=== PATIENT | male | born 1935 | race Caucasian/White ===

== ENCOUNTER 2017-06-29 08:30 | Inpatient (IN) | payer OTHER ==
[~2017-06-29] VITALS: Ht 170.2 cm; Wt 68.9 kg
[2017-06-29 10:15] LABS: ABSOLUTE BASOPHIL COUNT 0 /CUMM (0.0-0.2); ABSOLUTE EOSINOPHIL COUNT 0 /CUMM (0.0-0.7); ABSOLUTE GRANULOCYTE CT 6.2 /CUMM (1.4-6.5); ABSOLUTE LYMPH COUNT 1.2 /CUMM (1.2-3.4); BASOPHIL % 0.4 % (0.0-2.0); EOSINOPHIL % 0.4 % (0-5); GRANULOCYTE % 72.6 % (42.2-75.2); HEMATOCRIT 41.4 % (42-52); MEAN CORPUSCULAR HGB 27.6 PG (27.0-31.0); MEAN CORPUSCULAR HGB CONC 33.2 G/DL (33.0-37.0); MEAN CORPUSCULAR VOLUME 83.2 FL (80.0-94.0); MEAN PLATELET VOLUME 7.8 FL (7.4-10.4); PLATELET COUNT 253 /CUMM (130-400); RBC DISTRIBUTION WIDTH 13.2 % (11.5-14.5); RED BLOOD CELL CT 4.97 /CUMM (4.70-6.10); WHITE BLOOD CELL COUNT 8.5 /CUMM (4.8-10.8)
--- NOTE | 2017-06-29 11:20 | ED SYNCOPE COMPLAINT ---
History of Present Illness General Chief Complaint: General Adult Stated Complaint: 3 EPISODES OF SYNCOPE, UPPER RESP SYMPTOMS Source: patient Exam Limitations: no limitations Vital Signs & Intake/Output Vital Signs & Intake/Output Vital Signs Date Time Temp Pulse Resp B/P B/P Pulse O2 O2 Flow FiO2 Mean Ox Delivery Rate 06/29 1251 96.8 56 18 146/67 100 Room Air 06/29 1124 96.0 56 18 162/68 100 Room Air 06/29 0851 96.9 62 16 148/65 95 Room Air Allergies Coded Allergies: codeine (Severe, HALLUCINATIONS 06/29/17) Triage Note: PT TO ED FOR THREE NEAR SYNCOPAL EPISODES OVER THE WEEKEND, GENERALIZED WEAKNESS AND POOR APPETITE SINCE THURSDAY. PT DENIES ANY SOB, RUBALCAVA, CP, PALPITATIONS. Triage Nurses Notes Reviewed? yes Timing: recent history Precipitating Factors: none HPI: 81-year-old male comes into the emergency room for multiple complaints. He reports that he has not felt well for the past 4-5 days with associated cough and weakness. He reports that he's had 3 separate episodes of feeling profoundly weak dizzy lightheaded and his legs have just given out on him. He admits that he has not been drinking water at home. He denies any associated chest pain or shortness of breath or palpitations. He denies any complete loss of consciousness. He comes in for further evaluation. (Titus Story) Past History Travel History Traveled to [place] past 21 day No Medical History Any Pertinent Medical History? see below for history Neurological: NONE EENT: NONE Cardiovascular: hypertension Respiratory: NONE Gastrointestinal: NONE Hepatic: NONE Renal: NONE Musculoskeletal: NONE Psychiatric: anxiety Endocrine: diabetes Blood Disorders: NONE Cancer(s): NONE Surgical History Surgical History: non-contributory Psychosocial History What is your primary language Mexican Tobacco Use: Never used ETOH Use: denies use Illicit Drug Use: denies illicit drug use Family History Hx Contributory? No (Titus Story) Review of Systems Review of Systems Constitutional: Reports: see HPI. EENTM: Reports: no symptoms. Respiratory: Reports: see HPI. Cardiovascular: Reports: see HPI. GI: Reports: no symptoms. Genitourinary: Reports: no symptoms. Musculoskeletal: Reports: no symptoms. Skin: Reports: no symptoms. Neurological/Psychological: Reports: no symptoms. All Other Systems: Reviewed and Negative (Titus Story) Physical Exam Physical Exam General Appearance: well developed/nourished, no apparent distress, alert, awake Head: atraumatic, normal appearance Eyes: Bilateral: normal appearance, PERRL, EOMI. Ears, Nose, Throat: normal pharynx, normal ENT inspection, hearing grossly normal Neck: normal inspection Respiratory: normal breath sounds, no respiratory distress Cardiovascular: regular rate/rhythm Back: normal inspection Extremities: normal inspection Psychiatric: awake, alert, oriented x 3 Cranial Nerves: normal hearing, normal speech, PERRL Coordination/Gait: normal finger to nose, normal gait Motor/Sensory: no motor/sensory deficits Skin: intact, normal color Core Measures ACS in differential dx? Yes CVA/TIA Diagnosis: No Sepsis Present: No Sepsis Focused Exam Completed? No (Titus Story) Progress Differential Diagnosis: AMI, aortic dissection, orthostatic syncope, sick sinus syndrome, subarachnoid hem., TIA/CVA, ventricular tach/fib, DEHYDRATION, BRONCHITIS, INFLUENZA, Plan of Care: Orders Procedure Date/time Status Heart Healthy Diet 06/29 D Active Patient Data 06/29 1249 Active Misc Message 06/29 1242 Active ED Holding Orders 06/29 1242 Active Admit to inpatient 06/29 1242 Active Vital Signs 06/29 1242 Active Code Status 06/29 1242 Active MISTAKE 06/29 1051 Active RAPID VIRAL INFLUENZA A 06/29 0851 Complete URINALYSIS 06/29 0841 Complete TROPONIN LEVEL 06/29 0841 Complete COMPREHENSIVE METABOLIC PANEL 06/29 0841 Complete CBC WITHOUT DIFFERENTIAL 06/29 0841 Complete EKG 06/29 0833 Active Current Medications Sig/Dominic Start time Last Medication Dose Stop Time Status Admin Sodium Chloride 1,000 ML ONCE ONE 06/29 1130 AC 06/29 (Normal Saline 0.9%) 06/29 1809 1156 Laboratory Tests 06/29/17 1020: Urinalysis LIGHT H, Urine Color YEL, Urine Clarity HAZY H, Urine pH 6.0, Ur Specific [place] >= 1.030, Urine Protein TRACE H, Urine Ketones TRACE H, Urine Nitrite NEG, Urine Bilirubin NEG, Urine Urobilinogen 0.2, Ur Leukocyte Esterase NEG, Ur Microscopic SEDIMENT EXAMINED, Urine RBC 3-5, Urine WBC 5-10 H, Ur Epithelial Cells RARE, Urine Bacteria MOD H, Hyaline Casts 1-3 H, Granular Casts 3-5 H, Urine Mucus FEW, Urine Hemoglobin SMALL H, Urine Glucose NEG 06/29/17 1004: Anion Gap 15, Estimated GFR 34 L, BUN/Creatinine Ratio 21.1, Glucose 98, Calcium 9.5, Total Bilirubin 0.4, AST 63 H, ALT 60, Alkaline Phosphatase 77, Troponin I < 0.01, Total Protein 7.0, Albumin 4.2, Globulin 2.8, Albumin/ Globulin Ratio 1.5, CBC w Diff NO MAN DIFF REQ, RBC 4.97, MCV 83.2, MCH 27.6, MCHC 33.2, RDW 13.2, MPV 7.8, Gran % 72.6, Lymphocytes % 14.4 L, Monocytes % 12.2 H, Eosinophils % 0.4, Basophils % 0.4, Absolute Granulocytes 6.2, Absolute Lymphocytes 1.2, Absolute Monocytes 1.0 H, Absolute Eosinophils 0, Absolute Basophils 0 Microbiology 06/29 0857 NASOPHARYN: Influenza Virus A & B Rapid Smear - COMP Diagnostic Imaging: Viewed by Me: Radiology Read. Discussed w/RAD: Radiology Read. Radiology Impression: PATIENT: SOREN MICHELLE PRESENT AGE: 81 PATIENT ACCOUNT NO: [id number] : 35 LOCATION: [facility] ORDERING PHYSICIAN: Titus CHAO SERVICE DATE: 06/29/17 EXAM TYPE: RAD - XRY-CHEST XRAY, TWO VIEWS EXAMINATION: XR CHEST CLINICAL INFORMATION: Cough. Shortness of breath. COMPARISON: Selected images of the CT abdomen and pelvis of 02/11/2017. TECHNIQUE: 2 views of the chest were obtained. FINDINGS: Moderate elevation of the right hemidiaphragm is a stable finding. The evaluation of the right hemidiaphragm results in hyperexpansion of the right lung. Minimal right basilar subsegmental atelectasis. Remainder of the lungs are clear. No pleural effusions or pneumothorax. Mild degenerative changes in the spine. The cardiomediastinal silhouette is normal. IMPRESSION: Stable moderate elevation of the right hemidiaphragm. No acute pulmonary process. DICTATED BY: Darwin THOMPSON,Anal DATE/TIME DICTATED:06/29/171212 PSYCHOLOGIST CLINICAL:DAVID DATE/TIME TRANSCRIBED:06/29/171212 CONFIDENTIAL, DO NOT COPY WITHOUT APPROPRIATE AUTHORIZATION. <Electronically signed in Other Vendor System> SIGNED BY: Honey Granados MD 06/29/171217 Initial ED EKG: normal sinus rhythm, rate (65), LBBB (Titus Story) Departure Departure Disposition: STILL A PATIENT Condition: Stable Clinical Impression Primary Impression: Acute kidney injury Secondary Impressions: Near syncope Referrals: Matthieu THOMPSON,Jarek Leon (PCP/Family) Departure Forms: Customer Survey General Discharge Information Admission Note Spoke With: Madan Singh MD Documentation of Exam: Documentation of any treatments & extenuating circumstances including Concerns Regarding Discharge (functional status, medication knowledge or non-compliance, living conditions, etc.) that warrant an admission rather than observation: Patient will require gentle IV hydration. Cardiac telemetry. Cardiac consultation. Repeat labs. Physical therapy consult. Medically not safe for discharge. New-onset acute kidney injury. Orthostatic. (Titus Story) PA/LINING PRESSER Co-Sign Statement Statement: ED Attending supervision documentation- [X] I saw and evaluated the patient. I have also reviewed all the pertinent lab results and diagnostic results. I agree with the findings and the plan of care as documented in the PA's/LINING PRESSER's documentation. Patient presents for evaluation of multiple syncopal or near syncopal episodes. Patient states that there is no prodromal symptoms typically are limited and feeling his legs go out from under him. He denies chest pain or palpitations or headache associated with the episodes. Physical examination reveals a nonfocal neurologic examination aND regular heart rate. [] I have reviewed the ED Record and agree with the PA's/LINING PRESSER's documentation. [] Additions or exceptions (if any) to the PAs/LINING PRESSER's note and plan are summarized below: [] (Maranda THOMPSON,Jason Riley) (Jason Low MD)
--- NOTE | 2017-06-29 12:18 | RADIOLOGY REPORT ---
EXAMINATION: XR CHEST CLINICAL INFORMATION: Cough. Shortness of breath. COMPARISON: Selected images of the CT abdomen and pelvis of 02/11/2017. TECHNIQUE: 2 views of the chest were obtained. FINDINGS: Moderate elevation of the right hemidiaphragm is a stable finding. The evaluation of the right hemidiaphragm results in hyperexpansion of the right lung. Minimal right basilar subsegmental atelectasis. Remainder of the lungs are clear. No pleural effusions or pneumothorax. Mild degenerative changes in the spine. The cardiomediastinal silhouette is normal. IMPRESSION: Stable moderate elevation of the right hemidiaphragm. No acute pulmonary process.
--- NOTE | 2017-06-29 13:54 | History & Physical ---
Nestor Humphrey 06/29/17 1337: General Information and HPI MD Statement: I have seen and personally examined SOREN MICHELLE and documented this H&P. The patient is a 81 year old M who presented with a patient stated chief complaint of falls 3.. Source of Information: patient, family Exam Limitations: clinical condition, dementia History of Present Illness: Mr. Michelle is a 81-year-old gentleman with past medical history significant for coronary artery disease status post stent placement 6 years ago, hypertension, hyperlipidemia, dementia presented to ED this morning after experiencing frequent falls in the last 1 week. Patient was in his usual state of health until a week ago, when he visited his nephew's . After that, patient started experiencing "chest cold symptoms ". He was coughing heavily, had sputum production, recorded a temperature of 101.8, but no chills. This was accompanied by poor appetite and decreased oral hydration. 3 days ago, patient had an incident where he was in the kitchen, felt weak in his legs and then fell down on his hips. There was no associated lightheadedness, dizziness, palpitations. Patient has full re collection of the incident, and did not lose consciousness. Patient sustained 2 more similar falls, one this morning that prompted the patient's family to bring him to the ED. No loss of bowel or bladder incontinence. All the falls were unwitnessed. No numbness, tingling in any of the extremities. Patient states that despite his low appetite, he has been taking his medications (all blood pressure medications) faithfully. Of note, patient has had recent weight loss, which has been evaluated on the outside by Dr. Herring. He also reports decreased appetite for several months. Patient is a nonsmoker and from the last records, his last colonoscopy was in 2007. Mr. Michelle does have freckling on his lower lips. Other systems reviewed and negative, exceptions above. Allergies/Medications Allergies: Coded Allergies: codeine (Severe, HALLUCINATIONS 06/29/17) Home Med list Alprazolam 0.25 MG TABLET 1 TAB PO DAILY NEEDED MENTAL HEALTH (Reported) Amlodipine Besylate 10 MG TABLET 0.5 TAB PO DAILY BLOOD PRESSURE (Reported) Aspirin (Ecotrin*) 81 MG TABLET. 1 TAB PO DAILY HEART (Reported) Metformin HCl (Glucophage) 850 MG TABLET 1 TAB PO DAILY DIABETES (Reported) Metoprolol Tartrate (Lopressor) 50 MG TABLET 1 TAB PO BID HEART (Reported) Rosuvastatin Calcium (Crestor) 20 MG TABLET 1 TAB PO DAILY HLD (Reported) Tamsulosin HCl (Flomax) 0.4 MG CAP.ER.24H 1 CAP PO DAILY BPH (Reported) Triamterene/Hydrochlorothiazid (Triamterene-Hctz 37.5-25 MG Cp) 37.5 MG-25 MG CAPSULE 1 CAP PO DAILY WATER PILL (Reported) Valsartan (Diovan) 160 MG TABLET 1 TAB PO DAILY HTN (Reported) Compliance With Home Meds: GOOD Past History Travel History Traveled to [place] past 21 day No Medical History Neurological: NONE EENT: NONE Cardiovascular: hypertension Respiratory: NONE Gastrointestinal: NONE Hepatic: NONE Renal: NONE Musculoskeletal: NONE Psychiatric: anxiety Endocrine: diabetes Blood Disorders: NONE Cancer(s): NONE Surgical History Surgical History: non-contributory Past Family/Social History Family History Relations & Conditions if any Relation not specified for: No pertinent family history Psychosocial History ETOH Use: denies use Illicit Drug Use: denies illicit drug use Review of Systems Review of Systems Constitutional: Reports: see HPI. Exam & Diagnostic Data Last 24 Hrs of Vital Signs/I&O Vital Signs Date Time Temp Pulse Resp B/P B/P Pulse O2 O2 Flow FiO2 Mean Ox Delivery Rate 06/29 1251 96.8 56 18 146/67 100 Room Air 06/29 1124 96.0 56 18 162/68 100 Room Air 06/29 0851 96.9 62 16 148/65 95 Room Air Intake & Output 06/29 1600 06/29 0800 06/29 0000 Intake Total 0 Output Total 0 Balance 0 Intake, Oral 0 Output, Urine 0 Patient 150 lb Weight Weight Reported by Patient Measurement Method Physical Exam General Appearance Alert, Cooperative, No Acute Distress Skin No Rashes, No Breakdown, No Significant Lesion Skin Temp/Moisture Exam: Warm/Dry HEENT Atraumatic, PERRLA, EOMI, Mucous Membr. moist/pink, FRECKLING OF THE LOWER LIPS Neck Supple, No JVD Lymphatic Axillary nl, Cervical nl Cardiovascular Regular Rate, Normal S1, Normal S2 Lungs Clear to Auscultation, Normal Air Movement Abdomen Soft, No Tenderness, HYPERACTIVE BOWEL SOUNDS. Neurological Normal Speech, Strength at 5/5 X4 Ext Extremities No Clubbing, No Cyanosis, No Edema Last 24 Hrs of Labs/Pankaj: Laboratory Tests 06/29/17 1020: Urinalysis LIGHT H, Urine Color YEL, Urine Clarity HAZY H, Urine pH 6.0, Ur Specific [place] >= 1.030, Urine Protein TRACE H, Urine Ketones TRACE H, Urine Nitrite NEG, Urine Bilirubin NEG, Urine Urobilinogen 0.2, Ur Leukocyte Esterase NEG, Ur Microscopic SEDIMENT EXAMINED, Urine RBC 3-5, Urine WBC 5-10 H, Ur Epithelial Cells RARE, Urine Bacteria MOD H, Hyaline Casts 1-3 H, Granular Casts 3-5 H, Urine Mucus FEW, Urine Hemoglobin SMALL H, Urine Glucose NEG 06/29/17 1004: Anion Gap 15, Estimated GFR 34 L, BUN/Creatinine Ratio 21.1, Glucose 98, Calcium 9.5, Total Bilirubin 0.4, AST 63 H, ALT 60, Alkaline Phosphatase 77, Troponin I < 0.01, Total Protein 7.0, Albumin 4.2, Globulin 2.8, Albumin/ Globulin Ratio 1.5, CBC w Diff NO MAN DIFF REQ, RBC 4.97, MCV 83.2, MCH 27.6, MCHC 33.2, RDW 13.2, MPV 7.8, Gran % 72.6, Lymphocytes % 14.4 L, Monocytes % 12.2 H, Eosinophils % 0.4, Basophils % 0.4, Absolute Granulocytes 6.2, Absolute Lymphocytes 1.2, Absolute Monocytes 1.0 H, Absolute Eosinophils 0, Absolute Basophils 0 Microbiology 06/29 1020 URINE ROUT: Urine Culture - RECD 06/29 0857 NASOPHARYN: Influenza Virus A & B Rapid Smear - COMP Diagnostic Data EKG Results Sinus rhythm. QRS greater than 120. Dominant S wave in V1. Broad R waves and absent Q waves in lead 1, aVL, V5 to V6. Left bundle-branch block. CXR Results IMPRESSION: Stable moderate elevation of the right hemidiaphragm. No acute pulmonary process. Assessment/Plan Assessment: 81-year-old gentleman with past medical history significant for coronary artery disease status post stent placement 6 years ago, comes in with frequent falls 3 over the last 1 week, in the setting of recent upper respiratory chest syndrome, with subsequent decreased appetite and oral hydration resulting in unwitnessed falls associated with no transient loss of consciousness and no prodromal symptoms, likely secondary to dehydration (especially in the setting of TRINITY), although etiologies related to arrhythmias, structural cardio pulmonary disease etc. need to be ruled out. -Monitor on telemetry. -Check orthostatics. Resume Tamsulosin in am. -Serial troponins and EKG. -Check echocardiogram. -Fluid hydration with normal saline 2 bags. Encourage by mouth intake. Check BEP in the morning. Monitor LFTs (?high dose statin use). Hold nephrotoxic agents. Check CK. -Check CK levels to monitor safe use of statins. This could be a contributing factor to his muscle weakness and fall. May check Vit D and TSH levels. -For recent upper respiratory symptoms, continue hydration, antitussives and Tessalon Perles. Albuterol inhaler when necessary. TRC. Full code. Heart healthy diet. Heparin for DVT prophylaxis. As Ranked By This Provider Problem List: 1. Near syncope 2. Acute kidney injury Core Measures/Misc (02/01) Acute Coronary Syndrome ACS Diagnosis: No Congestive Heart Failure Congestive Heart Failure Diagnosis No Cerebrovascular Accident CVA/TIA Diagnosis: No VTE (View Protocol) VTE Risk Factors Age>40 No Mechanical VTE Prophylaxis d/t N/A MechProphylax Ordered No VTE Pharm Prophylaxis d/t NA PharmProphylax ordered Sepsis (View protocol) Sepsis Present: No Marion Lora MD 06/29/17 1440: Attending MD Review Statement Attending Statement Attending MD Statement: examined this patient, discuss w/resident/PA/MEDIA/INSTRUCTIONAL DESIGNER, agreed w/resident/PA/MEDIA/INSTRUCTIONAL DESIGNER, reviewed EMR data (avail), discussed with nursing, reviewed images Attending Assessment/Plan: 81-year-old male fairly extensive past medical history including coronary artery disease, diabetes on metformin, BPH on tamsulosin, hypertension on multiple medications and dementia. He had an upper respiratory tract infections/ influenza-like illness after a sick contact at a and subsequently for the past few days has had very poor by mouth intake, resulting in falls and near syncopal events 3. In the ER he was found to be dehydrated with TRINITY with a BUN of 40 and a creatinine of 1.9 with no evidence of infection with a negative UA, negative chest x-ray and negative flu swab. At this point given these near syncopal events will bring him into telemetry and get an echocardiogram to rule out structural heart disease. Will obviously hold his diuretics and his arb and gently hydrate him. Continue his metoprolol, tamsulosin and Norvasc. Put him on DVT prophylaxis, get a PT eval. His crtts is Dr. Barrera in [place] and will call him for collateral information.
--- NOTE | 2017-06-29 14:40 | Admission Certification ---
Admission Certification Certification Statement - As attending physician, I certify that at the time of - admission, based on clinical presentation, severity of - symptoms, need for further diagnostic testing and - therapeutic interventions, and risk of adverse outcomes - without in-hospital treatment, in my clinical assessment, - this patient requires an acute hospital stay for a minimum - of two nights or longer. I have also considered psychsocial - factors such as support system, advanced age, financial - issues, cognitive issues, and failed out-patient treatments, - past re-admission history, safety of patient, and lack of - compliance as applicable. Specific rationale supporting this admission is: Near syncope, dehydration and TRINITY.
[2017-06-29 14:45] VITALS: BP 124/64
[2017-06-29] MEDS ORDERED: ALPRAZOLAM0.25 M1 PO (14:52)
[2017-06-29] MEDS ORDERED: GLUCOPHAGE850 M2 PO (14:52)
[2017-06-29] MEDS ORDERED: FLOMAX0.4 M1 PO (14:53)
[2017-06-29] MEDS ORDERED: CRESTOR20 M2 PO (14:53)
[2017-06-29] MEDS ORDERED: ASPIRIN EC81 M1 PO (14:53)
[2017-06-29] MEDS ORDERED: LOPRESSOR50 M1 PO (14:54)
[2017-06-29] MEDS ORDERED: AMLODIPINE BESY10 M1 PO (14:54)
[2017-06-29] MEDS ORDERED: DIOVAN160 MG PO (14:54)
[2017-06-29] MEDS ORDERED: TRIAMTERENE-HC1 EAC3 PO (14:55)
--- NOTE | 2017-06-29 20:19 | RADIOLOGY REPORT ---
EXAMINATIONS: PELVIS 1 VIEW AND BILATERAL HIPS 2 VIEWS EACH CLINICAL INFORMATION: Pain after fall. COMPARISON: None. TECHNIQUE: A supine view of the pelvis is provided. AP neutral and frog-leg lateral views of each hip are provided. FINDINGS: There are no fractures. Both femoral heads are seated within well-formed acetabula. No dysplastic changes are identified. There is mild bilateral acetabular osteophyte formation. There is mild degenerative change within the visualized lower lumbar spine. The visualized bowel gas pattern is unremarkable. IMPRESSION: No evidence for acute injury. Quite mild lateral acetabular osteophyte formation. Mild degenerative change within the lower lumbar spine.
[2017-06-29 20:51] VITALS: BP 132/60
[2017-06-30 05:46] VITALS: BP 108/47
[2017-06-30 08:29] LABS: ABSOLUTE BASOPHIL COUNT 0 /CUMM (0.0-0.2); ABSOLUTE EOSINOPHIL COUNT 0 /CUMM (0.0-0.7); ABSOLUTE MONOCYTE COUNT 0.8 /CUMM (0.10-0.60); RBC DISTRIBUTION WIDTH 12.9 % (11.5-14.5)
[2017-06-30 08:57] LABS: ABSOLUTE GRANULOCYTE CT 3.8 /CUMM (1.4-6.5); ABSOLUTE LYMPH COUNT 1.8 /CUMM (1.2-3.4); BASOPHIL % 0.5 % (0.0-2.0); EOSINOPHIL % 0.4 % (0-5); MEAN CORPUSCULAR HGB 27.8 PG (27.0-31.0); MEAN CORPUSCULAR HGB CONC 33.3 G/DL (33.0-37.0); MEAN CORPUSCULAR VOLUME 83.4 FL (80.0-94.0); MEAN PLATELET VOLUME 8.1 FL (7.4-10.4); PLATELET COUNT 225 /CUMM (130-400); RED BLOOD CELL CT 4.12 /CUMM (4.70-6.10); WHITE BLOOD CELL COUNT 6.4 /CUMM (4.8-10.8)
[2017-06-30 08:59] LABS: HEMATOCRIT 34.3 % (42-52)
--- NOTE | 2017-06-30 10:02 | PN- Housestaff ---
Josh THOMPSON,[facility] 06/30/17 1001: Subjective Follow-up For: Fall TRINITY Subjective: Patient states he does not have any appetite and has not been able to eat much but drinks enough fluids. Also feels congested but is not able to bring up any phlegm. Review of Systems Constitutional: Reports: no symptoms. EENTM: Reports: no symptoms. Cardiovascular: Reports: no symptoms. Respiratory: Reports: cough. Gastrointestinal: Reports: no symptoms. Genitourinary: Reports: no symptoms. Musculoskeletal: Reports: no symptoms. Skin: Reports: no symptoms. Neurological/Psychological: Reports: no symptoms. Hematologic/Endocrine: Reports: no symptoms. Immunologic/Allergic: Reports: no symptoms. Objective Last 24 Hrs of Vital Signs/I&O Vital Signs Date Time Temp Pulse Resp B/P B/P Pulse O2 O2 Flow FiO2 Mean Ox Delivery Rate 06/30 1440 98.5 52 20 112/52 98 Room Air 06/30 09 68 108/57 06/30 0927 68 108/57 06/30 0927 68 108/57 06/30 0546 99.3 56 20 108/47 97 06/29 2051 99.3 68 20 132/60 98 Room Air 06/29 2046 68 132/60 06/29 1826 Room Air Room Air Intake & Output 06/30 1600 06/30 0800 06/30 0000 Intake Total 1000 750 100 Output Total 900 825 Balance 100 -75 100 Intake, IV 600 600 Intake, Oral 400 150 100 Number 0 Bowel Movements Output, Urine 900 825 Physical Exam General Appearance: Alert, Oriented X3, Cooperative, No Acute Distress Skin: No Rashes, No Breakdown Cardiovascular: Regular Rate, Normal S1, Normal S2 Lungs: Clear to Auscultation, Normal Air Movement Abdomen: Normal Bowel Sounds, Soft, No Tenderness Extremities: No Clubbing, No Cyanosis, No Edema, Normal Pulses Current Medications: Current Medications Sig/Dominic Start time Last Medication Dose Route Stop Time Status Admin Acetaminophen 650 MG Q4P PRN 06/29 1630 AC PO Acetaminophen 1,000 MG Q6P PRN 06/29 1630 AC N/A 1 UNIT IV Albuterol Sulfate 2 PUF Q4 PRN 06/29 1530 AC INH Alprazolam 0.25 MG DAILY NEEDED 06/29 1500 AC PO 07/06 1459 Amlodipine Besylate 5 MG DAILY 06/30 1000 AC 06/30 PO 0927 Aspirin Buffered 81 MG DAILY 06/30 1000 AC 06/30 PO 0927 Atorvastatin Calcium 80 MG 1700 06/29 1700 AC 06/30 PO 1600 Benzonatate 100 MG TID 06/29 1600 AC 06/30 PO 1600 Guaifenesin 600 MG Q12 06/30 1553 AC 06/30 PO 1600 Guaifenesin/ 10 ML Q6P PRN 06/29 1530 AC 06/30 Dextromethorphan PO 0359 Heparin Sodium 5,000 UNIT Q8 06/29 1400 AC 06/30 (Porcine) SC 1343 Insulin Aspart 0 TIDAC 06/29 1700 AC SC Metoprolol Tartrate 50 MG BID 06/29 2200 DC 06/30 PO 0927 Prochlorperazine 10 MG TID PRN 06/29 1515 AC IV Sodium Chloride 1,000 ML Q13H 06/29 1345 DC 06/30 IV 07/01 0444 1038 Sodium Chloride 1,000 ML ONCE ONE 06/29 1130 DC 06/29 IV 06/29 1809 1156 Tamsulosin HCl 0.4 MG DAILY 06/30 1000 AC 06/30 PO 0927 Last 24 Hrs of Lab/Pankaj Results Last 24 Hrs of Labs/Mics: Laboratory Tests 06/30/17 0641: Anion Gap 11, Estimated GFR 49 L, BUN/Creatinine Ratio 21.4, CBC w Diff NO MAN DIFF REQ, RBC 4.12 L, MCV 83.4, MCH 27.8, MCHC 33.3, RDW 12.9, MPV 8.1, Gran % 59.0, Lymphocytes % 27.6, Monocytes % 12.5 H, Eosinophils % 0.4, Basophils % 0.5, Absolute Granulocytes 3.8, Absolute Lymphocytes 1.8, Absolute Monocytes 0.8 H, Absolute Eosinophils 0, Absolute Basophils 0 06/29/172044: Troponin I < 0.01 Assessment/Plan Assessment: Mr. Prajapati is an 81-year-old gentleman with PMH significant for CAD s/p stent placement 6 years ago, comes in with frequent falls 3 over the last 1 week, in the setting of recent upper respiratory chest syndrome, with subsequent decreased appetite and oral hydration resulting in unwitnessed falls Problem List - Recurrent falls/near-syncopal events - TRINITY - Upper respiratory infection - Continue Monitoring on telemetry. - Echocardiogram pending. - Awaiting cardiology recommendations. - We'll stop the IV fluids(received 3 L) as the patient has enough by mouth intake. - Creatinine improved from 1.9-1.4 . -Repeat BEP in the morning. -Symptomatic treatment for recent upper respiratory symptoms Robitussin,Tessalon Perles and Albuterol inhaler when necessary. -Will add Mucinex because of continued congestion. - PT recommends home self care. - Continue home medications for chronic medical conditions. Problem List: 1. Acute kidney injury 2. Near syncope Pain Ratin Pain Location: None Pain Goal: Remain pain free Pain Plan: Pain pathway Tomorrow's Labs & Rationales: None Marion Lora MD 06/30/17 1540: Attending MD Review Statement Attending Statement Attending MD Statement: examined this patient, discuss w/resident/PA/CERTIFIED ADAPTED PHYSICAL EDUCATOR, agreed w/resident/PA/CERTIFIED ADAPTED PHYSICAL EDUCATOR, reviewed EMR data (avail), discussed with nursing, discussed with case mgmt, reviewed images Attending Assessment/Plan: Pt is still coughing. His pressure is borderline but he is not orthostatic. Appreciate cardiology's eval and we are going to stop his beta tobias given his borderline blood pressure and low heart rate. We also have the Arb on hold while his TRINITY is improving and we've hydrated him for the same. We have no evidence of pneumonia at this point and will need to follow that. PT recommended home self care.
--- NOTE | 2017-06-30 11:35 | Cons- Cardiology ---
General Information and HPI Consulting Request Date of Consult: 06/30/17 Requested By: Marion Lora MD Reason for Consult: multiple falls, question syncope in a patient with known coronary artery disease and chronic left bundle branch block. Source of Information: patient, family Exam Limitations: dementia History of Present Illness: Mr. Michelle is an 81-year-old man with a history of heart disease. He states he has had 2 stents "a long time ago". He followed previously with Dr. Soren Barrera but states he hasn't seen him in many years. He has a known left bundle branch block. The patient was well until about a week ago when he developed upper respiratory infection. He hasn't been eating and drinking well lately. Yesterday he had a weak spell in his kitchen and went down on his knees. He states he did not pass out. He was brought to the ER is found to have dehydration and AK I. Cardiac enzymes are negative 3. His EKG shows left bundle branch block. He is mildly bradycardic at this time. He is apparently on Lopressor 50 mg twice daily at home. He is hypertensive and diabetic and I'll usual medical regimen flatus. Currently he is on metoprolol and atorvastatin and amlodipine. His valsartan has not been restarted. His blood pressure has been normal. There have been no obvious arrhythmias. He does not have any chest pain. Allergies/Medications Allergies: Coded Allergies: codeine (Severe, HALLUCINATIONS 06/29/17) Home Med List: Alprazolam 0.25 MG TABLET 1 TAB PO DAILY NEEDED MENTAL HEALTH (Reported) Amlodipine Besylate 10 MG TABLET 0.5 TAB PO DAILY BLOOD PRESSURE (Reported) Aspirin (Ecotrin*) 81 MG TABLET.DR 1 TAB PO DAILY HEART (Reported) Metformin HCl (Glucophage) 850 MG TABLET 1 TAB PO DAILY DIABETES (Reported) Metoprolol Tartrate (Lopressor) 50 MG TABLET 1 TAB PO BID HEART (Reported) Rosuvastatin Calcium (Crestor) 20 MG TABLET 1 TAB PO DAILY HLD (Reported) Tamsulosin HCl (Flomax) 0.4 MG CAP.ER.24H 1 CAP PO DAILY BPH (Reported) Triamterene/Hydrochlorothiazid (Triamterene-Hctz 37.5-25 MG Cp) 37.5 MG-25 MG CAPSULE 1 CAP PO DAILY WATER PILL (Reported) Valsartan (Diovan) 160 MG TABLET 1 TAB PO DAILY HTN (Reported) Current Medications: Current Medications Sig/Dominic Start time Last Medication Dose Route Stop Time Status Admin Acetaminophen 650 MG Q4P PRN 06/29 1630 AC PO Acetaminophen 1,000 MG Q6P PRN 06/29 1630 AC N/A 1 UNIT IV Albuterol Sulfate 2 PUF Q4 PRN 06/29 1530 AC INH Alprazolam 0.25 MG DAILY NEEDED 06/29 1500 AC PO 07/06 1459 Amlodipine Besylate 5 MG DAILY 06/30 1000 AC 06/30 PO 0927 Aspirin Buffered 81 MG DAILY 06/30 1000 AC 06/30 PO 0927 Atorvastatin Calcium 80 MG 1700 06/29 1700 AC 06/29 PO 1827 Benzonatate 100 MG TID 06/29 1600 AC 06/30 PO 0926 Guaifenesin/ 10 ML Q6P PRN 06/29 1530 AC 06/30 Dextromethorphan PO 0359 Heparin Sodium 5,000 UNIT Q8 06/29 1400 DC (Porcine) SC Heparin Sodium 5,000 UNIT Q8 06/29 1400 AC 06/30 (Porcine) SC 0615 Insulin Aspart 0 TIDAC 06/29 1700 AC SC Metoprolol Tartrate 50 MG BID 06/29 2200 AC 06/30 PO 0927 Prochlorperazine 10 MG TID PRN 06/29 1515 AC IV Sodium Chloride 1,000 ML Q13H 06/29 1345 AC 06/30 IV 07/01 0444 1038 Sodium Chloride 1,000 ML ONCE ONE 06/29 1130 DC 06/29 IV 06/29 1809 1156 Tamsulosin HCl 0.4 MG DAILY 06/30 1000 AC 06/30 PO 0927 Review of Systems Review of Systems: He has respiratory symptoms for the past week or so Past History Travel History Traveled to [place] past 21 day No Medical History Blood Transfusion Hx: No Neurological: NONE EENT: NONE Cardiovascular: CAD, hypertension Respiratory: NONE Gastrointestinal: NONE Hepatic: NONE Renal: NONE Musculoskeletal: NONE Psychiatric: anxiety Endocrine: diabetes Blood Disorders: NONE Cancer(s): NONE SUPERVISOR GRINDING/Reproductive: NONE Surgical History Surgical History: CARDIAC STENTS X2 Family History Relations & Conditions If Any: Relation not specified for: No pertinent family history Psychosocial History Where Do You Live? Home Smoking Status: Never Smoked ETOH Use: denies use Illicit Drug Use: denies illicit drug use Exam & Diagnostic Data Vital Signs and I&O Vital Signs Date Time Temp Pulse Resp B/P B/P Pulse O2 O2 Flow FiO2 Mean Ox Delivery Rate 06/30 926 68 108/57 06/30 926 68 108/57 06/30 926 68 108/57 06/30 0546 99.3 56 20 108/47 97 06/29 2051 99.3 68 20 132/60 98 Room Air 06/29 2046 68 132/60 06/29 1826 Room Air Room Air 06/29 1445 97.8 60 18 124/64 99 Room Air 06/29 1430 Room Air 06/29 1412 98.7 56 18 117/58 98 Room Air 06/29 1251 96.8 56 18 146/67 100 Room Air Intake & Output 06/30 1600 06/30 0800 06/30 0000 06/29 1600 06/29 0800 06/29 0000 Intake Total 750 100 0 Output Total 825 0 Balance -75 100 0 Intake, IV 600 Intake, Oral 150 100 0 Number 0 Bowel Movements Output, Urine 825 0 Patient 152 lb Weight Weight Bed scale Measurement Method Physical Exam: Well-developed well-nourished elderly man in no acute distress HEENT exam normal Neck veins not distended Carotids normal Chest scattered rhonchi Heart regular rhythm, soft heart sounds, no murmurs Abdomen benign Extremities good pulses no edema Labs/Pankaj Results: Laboratory Tests 06/30 06/29 06/29 0641 2045 1620 Chemistry Sodium (137 - 145 mmol/L) 139 Potassium (3.5 - 5.1 mmol/L) 4.1 Chloride (98 - 107 mmol/L) 102 Carbon Dioxide (22 - 30 mmol/L) 26 Anion Gap (5 - 16) 11 BUN (9 - 20 mg/dL) 30 H Creatinine (0.7 - 1.2 mg/dL) 1.4 H Estimated GFR (>60 ml/min) 49 L BUN/Creatinine Ratio (7 - 25 %) 21.4 Troponin I (<0.11 ng/ml) < 0.01 < 0.01 Hematology CBC w Diff NO MAN DIFF REQ WBC (4.8 - 10.8 /CUMM) 6.4 RBC (4.70 - 6.10 /CUMM) 4.12 L Hgb (14.0 - 18.0 G/DL) 11.4 L Hct (42 - 52 %) 34.3 L MCV (80.0 - 94.0 FL) 83.4 MCH (27.0 - 31.0 PG) 27.8 MCHC (33.0 - 37.0 G/DL) 33.3 RDW (11.5 - 14.5 %) 12.9 Plt Count (130 - 400 /CUMM) 225 MPV (7.4 - 10.4 FL) 8.1 Gran % (42.2 - 75.2 %) 59.0 Lymphocytes % (20.5 - 51.1 %) 27.6 Monocytes % (1.7 - 9.3 %) 12.5 H Eosinophils % (0 - 5 %) 0.4 Basophils % (0.0 - 2.0 %) 0.5 Absolute Granulocytes (1.4 - 6.5 /CUMM) 3.8 Absolute Lymphocytes (1.2 - 3.4 /CUMM) 1.8 Absolute Monocytes (0.10 - 0.60 /CUMM) 0.8 H Absolute Eosinophils (0.0 - 0.7 /CUMM) 0 Absolute Basophils (0.0 - 0.2 /CUMM) 0 06/29 06/29 1020 1004 Chemistry Sodium (137 - 145 mmol/L) 137 Potassium (3.5 - 5.1 mmol/L) 4.8 Chloride (98 - 107 mmol/L) 96 L Carbon Dioxide (22 - 30 mmol/L) 26 Anion Gap (5 - 16) 15 BUN (9 - 20 mg/dL) 40 H Creatinine (0.7 - 1.2 mg/dL) 1.9 H Estimated GFR (>60 ml/min) 34 L BUN/Creatinine Ratio (7 - 25 %) 21.1 Glucose (65 - 99 mg/dL) 98 Calcium (8.4 - 10.2 mg/dL) 9.5 Total Bilirubin (0.2 - 1.3 mg/dL) 0.4 AST (17 - 59 U/L) 63 H ALT (21 - 72 U/L) 60 Alkaline Phosphatase (< 127 U/L) 77 Creatine Kinase (55 - 170 U/L) 208 H Troponin I (<0.11 ng/ml) < 0.01 Total Protein (6.3 - 8.2 g/dL) 7.0 Albumin (3.5 - 5.0 g/dL) 4.2 Globulin (1.9 - 4.2 gm/dL) 2.8 Albumin/Globulin Ratio (1.1 - 2.2 %) 1.5 25-OH Vitamin D Total (30 - 100 ng/ml) 8.6 L TSH (0.270 - 4.200 uIU/mL) 3.480 Hematology CBC w Diff NO MAN DIFF REQ WBC (4.8 - 10.8 /CUMM) 8.5 RBC (4.70 - 6.10 /CUMM) 4.97 Hgb (14.0 - 18.0 G/DL) 13.7 L Hct (42 - 52 %) 41.4 L MCV (80.0 - 94.0 FL) 83.2 MCH (27.0 - 31.0 PG) 27.6 MCHC (33.0 - 37.0 G/DL) 33.2 RDW (11.5 - 14.5 %) 13.2 Plt Count (130 - 400 /CUMM) 253 MPV (7.4 - 10.4 FL) 7.8 Gran % (42.2 - 75.2 %) 72.6 Lymphocytes % (20.5 - 51.1 %) 14.4 L Monocytes % (1.7 - 9.3 %) 12.2 H Eosinophils % (0 - 5 %) 0.4 Basophils % (0.0 - 2.0 %) 0.4 Absolute Granulocytes (1.4 - 6.5 /CUMM) 6.2 Absolute Lymphocytes (1.2 - 3.4 /CUMM) 1.2 Absolute Monocytes (0.10 - 0.60 /CUMM) 1.0 H Absolute Eosinophils (0.0 - 0.7 /CUMM) 0 Absolute Basophils (0.0 - 0.2 /CUMM) 0 Urines Urinalysis LIGHT H Urine Color (YEL,AMB,STR) YEL Urine Clarity (CLEAR) HAZY H Urine pH (5.0 - 8.0) 6.0 Ur Specific [place] (1.001 - 1.035) >= 1.030 Urine Protein (NEG,<30 MG/DL) TRACE H Urine Ketones (NEG) TRACE H Urine Nitrite (NEG) NEG Urine Bilirubin (NEG) NEG Urine Urobilinogen (0.1 - 1.0 EU/dl) 0.2 Ur Leukocyte Esterase (NEG) NEG Ur Microscopic SEDIMENT EXAMINED Urine RBC (0 - 5 /HPF) 3-5 Urine WBC (0 - 2 /HPF) 5-10 H Ur Epithelial Cells (NONE,FEW) RARE Urine Bacteria (NEG/NONE) MOD H Hyaline Casts (0/LPF) 1-3 H Granular Casts (NONE /LPF) 3-5 H Urine Mucus (FEW,NONE) FEW Urine Hemoglobin (NEG) SMALL H Urine Glucose (N MG/DL) NEG Diagnostic Data EKG Results EKG on admission shows sinus rhythm at a rate of 57 with left bundle branch block. Repeat EKG at about 9:00 last evening was unchanged. CXR Results PATIENT: SOREN MICHELLE PRESENT AGE: 81 PATIENT ACCOUNT NO: [id number] : 35 LOCATION: [facility] ORDERING PHYSICIAN: Titus CHAO SERVICE DATE: 06/29/17 EXAM TYPE: RAD - XRY-CHEST XRAY, TWO VIEWS EXAMINATION: XR CHEST CLINICAL INFORMATION: Cough. Shortness of breath. COMPARISON: Selected images of the CT abdomen and pelvis of 02/11/2017. TECHNIQUE: 2 views of the chest were obtained. FINDINGS: Moderate elevation of the right hemidiaphragm is a stable finding. The evaluation of the right hemidiaphragm results in hyperexpansion of the right lung. Minimal right basilar subsegmental atelectasis. Remainder of the lungs are clear. No pleural effusions or pneumothorax. Mild degenerative changes in the spine. The cardiomediastinal silhouette is normal. IMPRESSION: Stable moderate elevation of the right hemidiaphragm. No acute pulmonary process. DICTATED BY: Honey Granados MD DATE/TIME DICTATED:06/29/171212 BILINGUAL STUDENT TUTOR:DAVID DATE/TIME TRANSCRIBED:06/29/171212 CONFIDENTIAL, DO NOT COPY WITHOUT APPROPRIATE AUTHORIZATION. <Electronically signed in Other Vendor System> SIGNED BY: Honey Granados MD 06/29/171217 Assessment/Plan Assessment/Plan The patient is an 81-year-old man that oh "weak spell". It does not sound like sandor syncopal episode. He has a past history of coronary artery disease, left bundle branch block, hypertension, dyslipidemia, diabetes. At this time is a little bit bradycardic. This is possibly contributory to his episode. I suspect he was a little bit hypotensive due to dehydration as well. His BUN and creatinine have already improved and we will continue to monitor this. His baseline as of 01/27/2017 was BUN 21 and creatinine 1.2. I recommend holding his beta tobias at this time and monitor his heart rate. We can start this up at a lower dose if his heart rate comes up. We can continue his other medications that he is currently on and monitor his vital signs closely. We will get an echocardiogram on him as well. Copies To: Bruce THOMPSON,Soren Jacome; Matthieu THOMPSON,Jarek Tatum. Consult Acknowledgment - Thank you for your consult request.
[2017-06-30 14:40] VITALS: BP 112/52
[2017-06-30 22:46] VITALS: BP 120/52
[2017-07-01 07:00] VITALS: BP 112/60
--- NOTE | 2017-07-01 07:12 | PN- Housestaff ---
Josh THOMPSON,Tracey 07/01/17 0712: Subjective Follow-up For: Fall/near syncope TRINITY Subjective: Patient states he wants to go home today. Denies any lightheadedness/dizziness, vertigo, chest pain or palpitations. Reports improvement in his congestion and states he was able to bring up some phlegm after using Mucinex. Review of Systems Constitutional: Reports: no symptoms. EENTM: Reports: no symptoms. Cardiovascular: Reports: no symptoms. Respiratory: Reports: cough, sputum production. Gastrointestinal: Reports: no symptoms. Genitourinary: Reports: no symptoms. Musculoskeletal: Reports: no symptoms. Skin: Reports: no symptoms. Neurological/Psychological: Reports: no symptoms. Hematologic/Endocrine: Reports: no symptoms. Immunologic/Allergic: Reports: no symptoms. Objective Last 24 Hrs of Vital Signs/I&O Vital Signs Date Time Temp Pulse Resp B/P B/P Pulse O2 O2 Flow FiO2 Mean Ox Delivery Rate 07/01 1146 65 128/64 07/01 0753 62 112/60 07/01 0753 62 112/60 07/01 0700 97.6 54 20 112/60 96 Room Air 07/01 0000 Room Air 06/30 2246 98.8 63 20 120/52 98 Room Air Intake & Output 07/01 1600 07/01 0800 07/01 0000 Intake Total 360 120 Output Total 500 700 Balance -140 -580 Intake, Oral 360 120 Output, Urine 500 700 Physical Exam General Appearance: Alert, Oriented X3, Cooperative, No Acute Distress Skin: No Rashes, No Breakdown Cardiovascular: Regular Rate, Normal S1, Normal S2 Lungs: Normal Air Movement, Rhonchi bilaterally Abdomen: Normal Bowel Sounds, Soft, No Tenderness Extremities: No Clubbing, No Cyanosis, No Edema, Normal Pulses Current Medications: Current Medications Sig/Dominic Start time Last Medication Dose Route Stop Time Status Admin Acetaminophen 650 MG Q4P PRN 06/29 1630 DCD PO Acetaminophen 1,000 MG Q6P PRN 06/29 1630 DCD N/A 1 UNIT IV Albuterol Sulfate 2 PUF Q4 PRN 06/29 1530 DCD INH Alprazolam 0.25 MG DAILY NEEDED 06/29 1500 DCD 07/01 PO 07/06 1459 0342 Amlodipine Besylate 5 MG DAILY 06/30 1000 DCD 07/01 PO 0753 Aspirin Buffered 81 MG DAILY 06/30 1000 DCD 07/01 PO 0753 Atorvastatin Calcium 80 MG 1700 06/29 1700 DCD 06/30 PO 1600 Benzonatate 100 MG TID 06/29 1600 DCD 07/01 PO 0752 Guaifenesin 600 MG Q12 06/30 1553 DCD 07/01 PO 0753 Guaifenesin/ 10 ML Q6P PRN 06/29 1530 DCD 06/30 Dextromethorphan PO 0359 Heparin Sodium 5,000 UNIT Q8 06/29 1400 DCD 07/01 (Porcine) SC 0538 Insulin Aspart 0 TIDAC 06/29 1700 DCD SC Prochlorperazine 10 MG TID PRN 06/29 1515 DCD IV Tamsulosin HCl 0.4 MG DAILY 06/30 1000 DCD 07/01 PO 0753 Last 24 Hrs of Lab/Pankaj Results Last 24 Hrs of Labs/Mics: Laboratory Tests 07/01/17 0800: Anion Gap 10, Estimated GFR 58 L, BUN/Creatinine Ratio 15.8 Assessment/Plan Assessment: Mr. Prajapati is an 81-year-old gentleman with PMH significant for CAD s/p stent placement 6 years ago, comes in with frequent falls 3 over the last 1 week, in the setting of recent upper respiratory chest syndrome, with subsequent decreased appetite and oral hydration resulting in unwitnessed falls Problem List - Recurrent falls/near-syncopal events - TRINITY - Upper respiratory infection - Continue Monitoring on telemetry. - Echocardiogram showed ejection fraction of 50-55%, abnormal septal motion consistent with LBBB and stage I diastolic dysfunction. - Patient was sent home on Valsartan and Norvasc only, metoprolol and diuretic were held per cardiology recommendations since he was bradycardic with low normal blood pressure while on Norvasc only. - Creatinine improved from 1.9-1.4-->1.2. -Symptomatic treatment for recent upper respiratory symptoms Robitussin, Mucinex , Tessalon Perles and Albuterol inhaler when necessary. - PT recommended home self care. - Continue home medications for chronic medical conditions. DVT prophylaxis; subcutaneous heparin and Alps Patient is full code Problem List: 1. Near syncope 2. Acute kidney injury Pain Ratin Pain Location: None Pain Goal: Remain pain free Pain Plan: None Tomorrow's Labs & Rationales: None Guido THOMPSONMarion 07/01/17 1133: Attending MD Review Statement Attending Statement Attending MD Statement: examined this patient, discuss w/resident/PA/GAMBLING MONITOR, agreed w/resident/PA/GAMBLING MONITOR, reviewed EMR data (avail), discussed with nursing, reviewed images Attending Assessment/Plan: Patient feels well and is eager to go home. His BUN and creatinine are markedly improved suggesting all poor by mouth intake, dehydration with multiple medications including diuretics and arb which caused the near syncope. He is not orthostatic anymore. I talked to Dr. Polo Mckeon at length and given the bradycardia we are going to stop the beta tobias and given the issue with easy dehydration we are going to stop the diuretic. He will leave on his Norvasc and his valsartan and Dr. Holder will see him in the office within the week. The echo was reviewed by Dr. Holder and it's okay for discharge with outpatient follow-up.
--- NOTE | 2017-07-01 09:44 | Patient Discharge Instructions ---
Discharge Instructions General Discharge Information You were seen/treated for: Recurrent Falls/Near syncopal episodes Acute Kidney Injury Watch for these problems: Please return to the ER in case of any further falls, lightheadedness/dizziness, or Loss of consciousness. Special Instructions: Please follow up with your PCP within 1-2 weeks after discharge. Please follow up with your Outreach Associate within a week after discharge. Please do not take metoprolol and Triamterene-Hydrochlorthiazide until you see Dr. Holder in a week. Diet Continue normal diet: Yes Activity Full Activity/No Limits: Yes Acute Coronary Syndrome Inclusion Criteria At DC or during hospital stay patient has or had the following: ACS DIAGNOSIS No Discharge Core Measures Meds if any: Prescribed or Continued at Discharge Meds if any: NOT Prescribed or Continued at Discharge Congestive Heart Failure Inclusion Criteria At DC or during hospital stay patient has or had the following: CHF DIAGNOSIS No Discharge Core Measures Meds if any: Prescribed or Continued at Discharge Meds if any: NOT Prescribed or Continued at Discharge Cerebrovascular accident Inclusion Criteria At DC or during hospital stay patient has or had the following: CVA/TIA Diagnosis No Discharge Core Measures Meds if any: Prescribed or Continued at Discharge Meds if any: NOT Prescribed or Continued at Discharge Venous thromboembolism Inclusion Criteria VTE Diagnosis No VTE Type NONE VTE Confirmed by (Test) NONE Discharge Core Measures - Per Current guidelines, there needs to be overlap - treatment for the first 5 days of Warfarin therapy. - If discharged on Warfarin prior to 5 days of - overlap therapy, the patient will need to be - assessed for post discharge needs including - *Post discharge parental anticoagulation - *Warfarin and/or parental anticoagulation education - *Follow up date to check INR post discharge At least 5 days overlap therapy as Inpatient No Meds if any: Prescribed or Continued at Discharge Note: Overlap Therapy is Warfarin and Anticoagulant Meds if any: NOT Prescribed or Continued at Discharge
--- NOTE | 2017-07-01 11:37 | PN- Cardiology ---
Subjective Subjective: The patient is feeling well. He wants to go home. His blood pressure is good. He remains mildly bradycardic off beta blockers. His BUN and creatinine are about his baseline. His enzymes were negative. He had his echocardiogram which preliminarily shows good left ventricular systolic function and normal pulmonary artery pressure. Objective Vital Signs and I&Os Vital Signs Date Time Temp Pulse Resp B/P B/P Pulse O2 O2 Flow FiO2 Mean Ox Delivery Rate 07/01 0753 62 112/60 07/01 0753 62 112/60 07/01 0700 97.6 54 20 112/60 96 Room Air 07/01 0000 Room Air 06/30 2246 98.8 63 20 120/52 98 Room Air 06/30 1440 98.5 52 20 112/52 98 Room Air Intake & Output 07/01 1600 07/01 0800 07/01 0000 06/30 1600 06/30 0700 06/30 0000 Intake Total 903 224 7863 750 100 Output Total 500 700 900 825 Balance -380 -580 100 -75 100 Intake, IV 600 600 Intake, Oral 120 120 400 150 100 Number 0 Bowel Movements Output, Urine 500 700 900 825 Physical Exam: HEENT exam normal Chest a few rhonchi Heart regular rhythm no murmurs Extremities no edema Assessment/Plan Assessment/Plan This patient is stable enough for discharge at this time. He had dehydration and TRINITY which have improved. I recommend not sending him home on a beta tobias or a diuretic but he can continue his other antihypertensive medications. He should be followed up in the office soon because of his multiple underlying medical problems and acute illness.. Continue telemetry? No
[2017-07-01 11:46] VITALS: BP 128/64
--- NOTE | 2017-07-01 13:20 | Discharge Summary ---
Visit Information Visit Dates Admission Date: 06/29/17 Discharge Date: 07/01/17 Hospital Course Course Attending Physician: Guido THOMPSON,Marion Da Silva Primary Care Physician: Jarek Sommers MD Hospital Course: Mr. Prajapati is an 81-year-old gentleman with PMH significant for CAD s/p stent placement 6 years ago, comes in with frequent falls 3 over the last 1 week, in the setting of recent upper respiratory chest syndrome, with subsequent decreased appetite and oral hydration resulting in unwitnessed falls. Patient was admitted to the telemetry floor and following issues were addressed; - Recurrent falls/near-syncopal events - TRINITY - Upper respiratory infection Patient was started on IV fluids for possible dehydration given TRINITY which improved after gentle hydration. Antihypertensives were held except Norvasc. Cardiology was consulted who recommended getting an echocardiogram and holding metoprolol given bradycardia which could be responsible for is near syncopal episodes. Symptomatic treatment was provided for upper respiratory symptoms Robitussin, Mucinex, Tessalon Perles and Albuterol inhaler when necessary. PT evaluation was done who suggested home self care. Home medications were continued for other chronic medical conditions. Allergies: Coded Allergies: codeine (Severe, HALLUCINATIONS 06/29/17) Significant Procedures: CXR IMPRESSION: Stable moderate elevation of the right hemidiaphragm. No acute pulmonary process. Hip XRAY IMPRESSION: No evidence for acute injury. Quite mild lateral acetabular osteophyte formation. Mild degenerative change within the lower lumbar spine. Echocardiogram CONCLUSIONS Normal size left ventricle. Left ventricular ejection fraction is estimated at 50-55 %. Abnormal septal motion consistent with left bundle branch block. Abnormal relaxation filling pattern of the left ventricle for age (stage 1 diastolic dysfunction). Left atrial size at the upper limits of normal. Mild thickening/calcification of the mitral valve leaflets. Mild mitral annular calcification. No mitral regurgitation. Focal thickening of the aortic valve cusps. No aortic stenosis. Trace aortic regurgitation. Right ventricular systolic pressure estimated to be at upper limits of normal at 35 mmHg. Disposition Summary Disposition Principal Diagnosis: Fall/near syncope Additional Diagnosis: Acute kidney injury Discharge Disposition: home or self care Discharge Instructions General Discharge Information Code Status: Full Code Patient's Diet: Regular Patient's Activity: As tolerated Follow-Up Instructions/Appts: Please follow up with your PCP within 1-2 weeks after discharge. Please follow up with your [facility] within a week after discharge. Please do not take metoprolol and Triamterene-Hydrochlorthiazide until you see Dr. Holder in a week. Medications at Discharge Discharge Medications: Stop taking the following medications: Metoprolol Tartrate (Lopressor) 50 MG TABLET ORAL TWICE DAILY Triamterene/Hydrochlorothiazid (Triamterene-Hctz 37.5-25 MG Cp) 37.5 MG-25 MG CAPSULE ORAL DAILY Continue taking these medications: Alprazolam (Alprazolam) 0.25 MG TABLET 1 Tablet ORAL DAILY NEEDED Metformin HCl (Glucophage) 850 MG TABLET 1 Tablet ORAL DAILY Tamsulosin HCl (Flomax) 0.4 MG CAP.ER.24H 1 Capsule ORAL DAILY Rosuvastatin Calcium (Crestor) 20 MG TABLET 1 Tablet ORAL DAILY Aspirin (Ecotrin*) 81 MG TABLET.DR 1 Tablet ORAL DAILY Amlodipine Besylate (Amlodipine Besylate) 10 MG TABLET 0.5 Tablet ORAL DAILY Valsartan (Diovan) 160 MG TABLET 1 Tablet ORAL DAILY Copies To: Matthieu THOMPSON,Jarek Holder MD,Mckay Barber
--- NOTE | 2017-07-01 13:33 | ECHOCARDIOGRAM REPORT ---
SOREN MICHELLE Age: 81 : 1935 Gender: M Exam Date: 07/01/2017 11:14 Exam Location: 1 [address] Ht (in): 67 Wt (lb): 151 BSA: 1.81 BP: 108 / 47 Ordering Physician: Nestor Humphrey MD Referring Physician: Nestor Humphrey MD Technologist: Eliezer Garcia [facility] Room Number: 185-2 Indications: LIGHTHEADEDNESS Rhythm: Sinus Technical Quality: Good FINDINGS Left Ventricle Normal size left ventricle. Normal left ventricular wall thickness. Left ventricular ejection fraction is estimated at 50-55 %. Abnormal septal motion consistent with left bundle branch block. Abnormal relaxation filling pattern of the left ventricle for age (stage 1 diastolic dysfunction). Right Ventricle Normal right ventricular size and function. Right Atrium Normal right atrial size. Left Atrium Left atrial size at the upper limits of normal. Mitral Valve Mild thickening/calcification of the mitral valve leaflets. Mild mitral annular calcification. No mitral regurgitation. Aortic Valve Focal thickening of the aortic valve cusps. No aortic stenosis. Trace aortic regurgitation. Tricuspid Valve Tricuspid valve is normal in structure and function. Mild tricuspid regurgitation. Right ventricular systolic pressure estimated to be at upper limits of normal at 35 mmHg. Pulmonic Valve Pulmonic valve not well visualized, grossly normal. Trace pulmonic regurgitation. Pericardium No pericardial or pleural effusion. Great Vessels Normal size aortic root. CONCLUSIONS Normal size left ventricle. Left ventricular ejection fraction is estimated at 50-55 %. Abnormal septal motion consistent with left bundle branch block. Abnormal relaxation filling pattern of the left ventricle for age (stage 1 diastolic dysfunction). Left atrial size at the upper limits of normal. Mild thickening/calcification of the mitral valve leaflets. Mild mitral annular calcification. No mitral regurgitation. Focal thickening of the aortic valve cusps. No aortic stenosis. Trace aortic regurgitation. Right ventricular systolic pressure estimated to be at upper limits of normal at 35 mmHg. Mckay Holder M.D. (Electronically Signed) Final Date: 01 July 2017 13:33 MEASUREMENTS (Male / Female) Normal Values 2D ECHO LV Diastolic Diameter PLAX 4.5 cm 4.2 - 5.9 / 3.9 - 5.3 cm LV Systolic Diameter PLAX 3.4 cm 2.1 - 4.0 cm LV Fractional Shortening PLAX 24.4 % 25 - 46 % LV Ejection Fraction 2D Teich 48.7 % IVS Diastolic Thickness 1.0 cm LVPW Diastolic Thickness 1.0 cm LV Relative Wall Thickness 0.4 RV Internal Dim ED PLAX 4.0 cm 1.9 - 3.8 cm LVOT Diameter 1.8 cm Aortic Root Diameter 2.7 cm LA Systolic Diameter LX 3.9 cm 3.0 - 4.0 / 2.7 - 3.8 cm LA Volume 40.0 cm 18 - 58 / 22 - 52 cm Ascending Aorta Diameter 3.0 cm DOPPLER AV Peak Velocity 136.0 cm/s AV Peak Gradient 7.4 mmHg AV Mean Velocity 87.6 cm/s AV Mean Gradient 4.0 mmHg AV Velocity Time Integral 32.7 cm LVOT Peak Velocity 89.5 cm/s LVOT Peak Gradient 3.2 mmHg LVOT Mean Velocity 62.8 cm/s LVOT Mean Gradient 2.0 mmHg LVOT Velocity Time Integral 23.4 cm LVOT Stroke Volume 59.5 cm AV Area Cont Eq vti 1.8 cm AV Area Cont Eq pk 1.7 cm MV Peak Velocity 112.0 cm/s MV Peak Gradient 5.0 mmHg MV Mean Velocity 50.8 cm/s MV Mean Gradient 1.0 mmHg Mitral E Point Velocity 77.0 cm/s Mitral A Point Velocity 98.2 cm/s Mitral E to A Ratio 0.8 MV PHT Velocity 84.2 cm/s MV Deceleration Irion 373.0 cm/s MV Pressure Half Time 67.7 ms MV Area PHT 3.2 cm MV Deceleration Time 303.0 ms TR Peak Velocity 274.0 cm/s TR Peak Gradient 30.0 mmHg Right Atrial Pressure 10.0 mmHg Pulmonary Artery Systolic Pressu 40.0 mmHg Right Ventricular Systolic Press 40.0 mmHg PV Peak Velocity 135.0 cm/s PV Peak Gradient 7.3 mmHg PV Mean Velocity 87.5 cm/s PV Mean Gradient 4.0 mmHg PV Velocity Time Integral 32.6 cm LV E' Lateral Velocity 8.0 cm/s Mitral E to LV E' Lateral Ratio 9.6 LV E' Septal Velocity 6.0 cm/s Mitral E to LV E' Septal Ratio 12.7
== END 2017-07-01 12:05 | DRG 684 ==
LOC: ERH 08:30 → ERHI 12:42 → 1NO 12:42 → ENRESERV 13:34 → ENTRNSPT 14:12 → EDTRNSPTSTS 14:25 → EDTRNSPT 14:25 → 1NO 14:33 → CMPTRNSPT 14:42 → ENTRNSPT 17:30 → EDTRNSPTSTS 17:35 → EDTRNSPT 17:36 → CMPTRNSPT 17:47 → 1NO 21:06 → ENPENDDIS 07-01 11:54 → 1NO 07-01 12:05
PROVIDERS: Internal Medicine Hematology & Oncology; Physician Assistant Medical
DX: N17.9 Acute kidney failure, unspecified (principal); E11.9 Type 2 diabetes mellitus without complications; I10 Essential (primary) hypertension; Z79.84 Long term (current) use of oral hypoglycemic drugs; I25.10 Atherosclerotic heart disease of native coronary artery without angina pectoris; Z95.5 Presence of coronary angioplasty implant and graft; R55 Syncope and collapse; Z91.81 History of falling
CPT/HCPCS: 1NSP; 36415; 71046; 73502-LT; 73502-RT; 81001; 82436; 87086; 87804; 87804-59; 93005; 93010; 93306; 97110-GO; 97116-GO; 97161-GP; J0131; J0780; J1644; J3490

== ENCOUNTER → 2017-09-01 | Day surgery (SDC) | payer OTHER ==
[~2017-09-01] VITALS: Ht 170.2 cm; Wt 83.9 kg
[~2017-09-01] MED LIST: ALPRAZOLAM0.25 M1 PO; AMLODIPINE BESY10 M1 PO; ASPIRIN EC81 M1 PO; CRESTOR20 M2 PO; DIOVAN160 MG PO; FLOMAX0.4 M1 PO; GLUCOPHAGE850 M2 PO; LOPRESSOR50 M1 PO; METOPROLOL TART25 M1 PO; PERCOCET 5-3251 EACH PO; TRIAMTERENE-HC1 EAC3 PO
--- NOTE | 2017-09-03 10:14 | Operative Report ---
Operative/Inv Procedure Report Surgery Date: 09/01/17 Name of Procedure: Left TEPP, laparosc LIH c mesh Pre-Operative Diagnosis: LIH Post-Operative Diagnosis: same Estimated Blood Loss: scant Surgeon/Brand Strategist: Noemi THOMPSON,Nav CHAO Anesthesia: general endotracheal tube Operative/Procedure Note Note: Patient was positioned supine on the table. After successful induction of general anesthesia the inguinal and surrounding areas were clipped prepped and draped in the usual sterile fashion. After injection of local anesthetic at the bottom of the umbilicus off the midline to the left, a 1 1/2 cm curved incision was made with a 15 blade, then deepened through Sukhi's fascia, sweeping off the rectus sheath. A horizontal 1-1/2 cm incision was made between the fibers, elevating these edges with 0 Vicryl stay sutures. Then retracting the muscle laterally, clearing off the posterior rectus sheath, this space is developed down the midline to the pubis sequentially, with an S retractor, a peanut dissector, then the balloon-camera device, inflating it 30-40 pumps while watching how it opens up the space, keeping the epigastrics up. The balloon is then replaced with a 10 mm Dewey trocar, inserted, shortened, and secured with the stay sutures, gas turned on to 12 not 15 mm. Then two 5 mm trochars are inserted in the midline just below the camera, spaced by approximately 3 cm. Using mostly blunt dissection with peanuts to define the anatomy, first Min's ligament is swept off medially, checking the medial spaces, direct and femoral. There were no hernias there. Then briefly skipping over the area of the iliac fat pad, we developed the iliopubic tract out laterally to the iliac crest. Then we returned to the area of the fat pad where the hernia sac and the cord structures are adherent, coursing up into an attenuated deep ring. The cord structures form a triangle with the vas approaching medially and the main vessels approaching laterally, with the apex at the deep ring. There was some preperitoneal fat up inside in front that was dragged down and out, helping identify the distal lip of the hernia sac, which is then carefully peeled off the cord structures, especially the vas. The cord is also from the underlying iliac fat. Once the hernia sac is from the cord structures down to the base of this "triangle," a Parietex sided mesh with the suture, is marked and stuffed down the camera trocar, then unfurled in a systematic fashion , first with the smaller leaflet passing behind the cord structures, until the flap covers the epigastrics, covering the deep ring, then the larger leaflet is released from the suture, double-covering the smaller one, but also extends laterally out to the iliac crest, medially over Min's ligament, and superiorly towards the camera. There is a third part of the mesh, that covers the iliac fat pad like a skirt. The mesh was adjusted back and forth so that the keyhole is centered around the cord, lays flat and the edges are not curling. A trial run of letting the gas escape a little bit to see how the mesh would lay as the peritoneum comes back down is done, then when we're satisfied, we let rest of the gas escape, pulling out the instruments and trochars. The fascia is closed with a [id number] 0 Vicryl suture, tying the stay sutures on top. Then we closed the 3 skin incisions with interrupted 4-0 Monocryl, 3 for the umbilical, one each for the smaller ones, followed by Mastisol, Steri-Strips and Band-Aids. Overall estimated blood loss was minimal, lap and sponge counts were correct, wound expectancy was clean, IV fluids crystalloid, complications none, patient tolerated the procedure well, did not significantly gardner during extubation and was returned to the recovery room in satisfactory condition.
== END ==
LOC: STS 03:28
DX: K40.90 Unilateral inguinal hernia, without obstruction or gangrene, not specified as recurrent (principal); I25.10 Atherosclerotic heart disease of native coronary artery without angina pectoris; Z95.5 Presence of coronary angioplasty implant and graft; I10 Essential (primary) hypertension; E11.9 Type 2 diabetes mellitus without complications; Z79.84 Long term (current) use of oral hypoglycemic drugs
CPT/HCPCS: 36415; C1781; C9399; J0690; J2250